=== PATIENT | male | born 1950 | race Caucasian/White ===

== ENCOUNTER 2017-03-22 10:15 | Emergency (ER) | payer OTHER ==
--- NOTE | 2017-03-22 11:43 | RAD ---
HISTORY: Left leg pain COMPARISONS: None relevant TECHNIQUE: Multiple transverse and longitudinal ultrasound images were obtained of the left lower extremity from the level of the common femoral vein inferiorly through to the infrapopliteal veins using grayscale, color Doppler, and spectral Doppler imaging with and without compression and with augmentation. Comparison images were obtained of the contralateral common femoral vein. FINDINGS: VEINS: There is thrombosis of the greater saphenous vein that extends past the common femoral junction into the common femoral vein.. SOFT TISSUES: Unremarkable. OTHER FINDINGS: None. IMPRESSION: GREATER SAPHENOUS VEIN THROMBOSIS WITH EXTENSION INTO THE COMMON FEMORAL VEIN
[2017-03-22 12:09] LABS: Hematocrit 45 % (42-52); Hemoglobin 15.2 g/dl (14.0-18.0); Mean Corpuscular HGB Conc 34 g/dl (31-36); Mean Corpuscular Hemoglobin 31 pg (27-31); Mean Corpuscular Volume 93 fL (80-94); Mean Platelet Volume 8 um3 (7.4-10.4); Red Blood Count 4.85 10^6/ul (4.0-5.4); Red Cell Distribution Width 13 % (10.5-15); White Blood Count 14.8 10^3/ul (3.5-10.8)
[2017-03-22 12:10] LABS: Add Diff/Slide Review? Slide Review Added; Comments Flag Yes
[2017-03-22 12:24] LABS: Albumin 3.8 g/dL (3.2-5.2); BUN/Creatinine Ratio 15.9 (8-20); C Reactive Protein 12.98 mg/L (< 5.00); Calcium 9.3 mg/dL (8.6-10.3); EGFR African American 112.1 (>60); EGFR Non-African American 87.2 (>60); Globulin 2.5 g/dL (2-4); Potassium 4.3 mmol/L (3.5-5.0); Total Bilirubin 0.5 mg/dL (0.2-1.0); Total Protein 6.3 g/dL (6.4-8.9)
[2017-03-22 12:45] LABS: Eosinophils % 20 % (0-6); Neutrophil % 56 % (38-83); Reactive Lymph % 1 % (0-6)
[2017-03-22 12:46] LABS: RBC Morphology Normal (Normal)
[2017-03-22] MEDS ORDERED: Rivaroxaban TAB(*) 15 MG PO ONE (13:24)
--- NOTE | 2017-03-22 13:29 | ED ---
Madison Garcia Gabriel, scribed for David Stephens MD on 03/22/17 at 1105 . Lower Extremity - HPI Summary HPI Summary: This patient is a 66 year old M presenting to [facility] accompanied by with a chief complaint of LLE pain since earlier today. The patient rates the pain 6/ 10 in severity. Patient reports pain, erythema, and a lump in the upper thigh on the left leg. Patient denies any pain or swelling to the right leg, CP, back pain, and ABD pain. The patient has [facility] but was not placed on blood thinners. The patient states he has not been any long trips recently where he was in an airplane or car for long periods of time and trauma. - History of Current Complaint Chief Complaint: EDExtremityLower Stated Complaint: LT LOWER EXTREMITY PAIN Time Seen by Provider: 03/22/17 10:56 Hx Obtained From: Patient Onset of Pain: Hours Onset/Duration: Still Present Severity Initially: Moderate Severity Currently: Moderate Pain Intensity: 6 Pain Scale Used: 0-10 Numeric Timing: Constant Location: Is Diffuse Associated Signs And Symptoms: Positive: Negative - denies any pain or swelling to the right leg, CP, back pain, and ABD pain, Swelling, Redness Able to Bear Weight: Yes - Allergies/Home Medications Allergies/Adverse Reactions: Allergies Allergy/AdvReac Type Severity Reaction Status Date / Time No Known Allergies Allergy Verified 10/23/14 15:10 PMH/Surg Hx/FS Hx/Imm Hx Previously Healthy: No Endocrine/Hematology History: Denies: Hx Diabetes Cardiovascular History: Reports: 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 Denies: Hx Atrial Fibrillation, Hx Hypertension Respiratory History: Reports: Hx Chronic Obstructive Pulmonary Disease (COPD) Infectious Disease History: No Infectious Disease History: Reports: Hx of Known/Suspected MRSA Denies: Traveled Outside the [place] in Last 30 Days - Family History Known Family History: Positive: Cardiac Disease - mother had a [facility] Negative: Hypertension, Diabetes, Renal Disease, Respiratory Disease, Seizure Disorder - Social History Lives: With Family Alcohol Use: Daily Alcohol Amount: 1-2day Substance Use Type: Reports: Marijuana Smoking Status (MU): Former Smoker Review of Systems Negative: Chest Pain Negative: Abdominal Pain Musculoskeletal: Negative - back pain. no symptoms in the RLE Positive: Other - LLE pain, erythema, and a lump in the upper thigh All Other Systems Reviewed And Are Negative: Yes Physical Exam - Summary Physical Exam Summary: General: well-appearing, no pain distress Skin: warm, color reflects adequate perfusion, dry Head: normal Eyes: EOMI, MARIA TERESA ENT: normal Neck: supple, nontender Respiratory: CTA, breath sounds present Cardiovascular: RRR Abdomen: soft, nontender Bowel: present Musculoskeletal: strength/ROM intact, erythema and swelling in the inner upper thigh and inner knee, there are good pulses and capillary refill Neurological: normal, sensory/motor intact, A&O x3 Psychological: affect/mood appropriate Triage Information Reviewed: Yes Vital Signs On Initial Exam: Initial Vitals BP 109/82 03/22/17 10:38 Vital Signs Reviewed: Yes - [place] Coma Scale Coma Scale Total: 15 Diagnostics - Vital Signs Vital Signs Temp Pulse Resp BP Pulse Ox 03/22/17 10:44 96.7 F 101 18 109/82 96 03/22/17 10:39 108 96 03/22/17 10:38 109/82 - Laboratory Lab Results: Lab Results 03/22/17 03/22/17 03/22/17 Range/Units 11:57 11:57 11:57 WBC 14.8 H (3.5-10.8) 10^3/ul RBC 4.85 (4.0-5.4) 10^6/ul Hgb 15.2 (14.0-18.0) g/dl Hct 45 (42-52) % MCV 93 (80-94) fL MCH 31 (27-31) pg MCHC 34 (31-36) g/dl RDW 13 (10.5-15) % Plt Count 305 (150-450) 10^3/ul MPV 8 (7.4-10.4) um3 Neut % (Auto) 50.4 (38-83) % Lymph % (Auto) 20.0 L (25-47) % [place] % (Auto) 7.2 (1-9) % Eos % (Auto) 21.9 H (0-6) % Baso % (Auto) 0.5 (0-2) % Absolute Neuts (auto) 7.5 (1.5-7.7) 10^3/ul Absolute Lymphs (auto) 3.0 (1.0-4.8) 10^3/ul Absolute Monos (auto) 1.1 H (0-0.8) 10^3/ul Absolute Eos (auto) 3.2 H (0-0.6) 10^3/ul Absolute Basos (auto) 0.1 (0-0.2) 10^3/ul Absolute Nucleated RBC 0.01 10^3/ul Neutrophils % 56 (38-83) % Lymphocytes % 16 L (25-47) % Reactive Lymphs % 1 (0-6) % Monocytes % 6 (0-13) % Eosinophils % 20 H (0-6) % Basophils % 1 (0-2) % Nucleated RBC % 0 Normal RBC Morphology Normal (Normal) INR (Anticoag Therapy) 1.02 (0.77-1.02) APTT 30.0 (26.0-36.3) seconds Sodium 132 L (133-145) mmol/L Potassium 4.3 (3.5-5.0) mmol/L Chloride 102 (101-111) mmol/L Carbon Dioxide 24 (22-32) mmol/L Anion Gap 6 (2-11) mmol/L BUN 14 (6-24) mg/dL Creatinine 0.88 (0.67-1.17) mg/dL Est GFR ( Amer) 112.1 (>60) Est GFR (Non-Af Amer) 87.2 (>60) BUN/Creatinine Ratio 15.9 (8-20) Glucose 114 H (70-100) mg/dL Calcium 9.3 (8.6-10.3) mg/dL Total Bilirubin 0.50 (0.2-1.0) mg/dL AST 18 (13-39) U/L ALT 23 (7-52) U/L Alkaline Phosphatase 50 (34-104) U/L C-Reactive Protein 12.98 H (< 5.00) mg/L Total Protein 6.3 L (6.4-8.9) g/dL Albumin 3.8 (3.2-5.2) g/dL Globulin 2.5 (2-4) g/dL Albumin/Globulin Ratio 1.5 (1-3) Result Diagrams: 03/22/17 11:57 03/22/17 11:57 Lab Statement: Any lab studies that have been ordered have been reviewed, and results considered in the medical decision making process. - Additional Comments Diagnostic Additional Comments: Venous Doppler reveals, per radiologist, GREATER SAPHENOUS VEIN THROMBOSIS WITH EXTENSION INTO THE COMMON FEMORAL VEIN ED physician has reviewed this radiology report and agrees. Lower Extremity Course/Dx - Course Course Of Treatment: NO CLINICAL EVIDENCE OF PE IN ED. RX XARELTO, F[facility]U [facility]. RETURN IF WORSE. - Diagnoses Provider Diagnoses: Left leg DVT Discharge - Discharge Plan Condition: Stable Disposition: HOME Prescriptions: Rivaroxaban TAB(*) [Xarelto 15 mg(*)] 15 mg PO BID #41 tab Patient Education Materials: Deep Venous Thrombosis (ED) Referrals: Minda Hurtado [Primary Care Provider] - Additional Instructions: FOLLOW UP WITH YOUR [facility] DOCTOR. CALL TODAY TO ARRANGE FOLLOW UP WITHIN 1-2 WEEKS. RETURN TO THE EMERGENCY DEPARTMENT FOR ANY WORSENING OF YOUR CONDITION; CHEST PAIN, SHORTNESS OF BREATH OR QUESTIONS OR CONCERNS. The documentation as recorded by the Madison butler Gabriel accurately reflects the service I personally performed and the decisions made by me, David Stephens MD.
[2017-03-22 14:12] VITALS: BP 113/99
== END 2017-03-22 14:15 | disposition home or self-care (01) ==
LOC: ED 10:15
DX: I82.812 Embolism and thrombosis of superficial veins of left lower extremity (principal); J44.9 Chronic obstructive pulmonary disease, unspecified; Z87.891 Personal history of nicotine dependence
CPT/HCPCS: 36415; 80053; 85025; 85610; 85730; 86140

== ENCOUNTER 2024-03-29 16:19 | Inpatient (IN) ==
[2024-03-29] MEDS: methylPREDNISolone SOD SUCC 125 mg 2 ML VIAL IV ONE (16:50)
[2024-03-29] MEDS: Albuterol/Ipratropium NEB.SOL (2.5/0.5 MG) 3 ML NEB.SOLN INH ONE (16:50)
[2024-03-29 17:08] LABS: ABS Basophils 0.1 10^3/uL (0.0-0.1); ABS Eosinophils 0.2 10^3/uL (0.0-0.5); ABS Lymphocytes 1.4 10^3/uL (1.0-4.8); ABS Monocytes 0.6 10^3/uL (0.0-1.1); ABS Neutrophils 4.9 10^3/uL (1.5-7.6); Eosinophil % 2.2 %; Hematocrit 41.1 % (38-53); Hemoglobin 14.3 g/dL (13.2-16.3); Mean Corpuscular Hemoglobin 31.9 pg (27-33); Mean Corpuscular Hgb Conc 34.7 g/dL (31-36); Mean Corpuscular Volume 91.9 fL (80-97); Mean Platelet Volume 7.3 fL (7.5-11.2); Platelet Count 426 10^3/uL (150-450); Red Blood Count 4.47 10^6/uL (4.06-5.63); Red Cell Distribution Width 13.1 % (12-17); White Blood Count 7.2 10^3/uL (3.6-10.2)
[2024-03-29 17:13] LABS: INR 0.97 (0.85-1.14)
[2024-03-29] MEDS: Azithromycin 500 mg/250 ml NS 500 MG/250 ML BAG IVPB ONE (17:21)
[2024-03-29] MEDS: cefTRIAXone 2 GM ADDV.VIAL 2 GM in NS 0.9% 100 ml BAG 100 ML IV ONE (17:24)
[2024-03-29 17:25] LABS: Albumin 4.4 g/dL (3.5-5.7); Albumin/Globulin Ratio 1.8 (1-3); Calcium 9.8 mg/dL (8.6-10.3); Creatinine, Serum 0.88 mg/dL (0.67-1.17); Globulin 2.4 g/dL (2-4); Potassium 4.3 mmol/L (3.5-5.0); Total Bilirubin 0.5 mg/dL (0.2-1.0); Total Protein 6.8 g/dL (6.4-8.9); eGFR CKD-EPI 91.9 (>60)
[2024-03-29 18:15] LABS: High Sensitivity Troponin 1 Hr 4 pg/mL (<20)
[2024-03-29] MEDS: cefTRIAXone 2 gm/50 mL D5W 2 GM/50 ML BAG IV ONE (18:26)
[2024-03-29] MEDS ORDERED: methylPREDNISolone SOD SUCC 125 mg 2 ML VIAL IV SCH (20:00)
[2024-03-29] MEDS: Enoxaparin 40 MG/0.4 ML SYR SUBCUT SCH (20:27)
[2024-03-29] MEDS: Albuterol 2.5mg/3 ml (0.083%) NEB.SOLN INH PRN (20:28)
[2024-03-30] MEDS: methylPREDNISolone SOD SUCC 125 mg 2 ML VIAL IV SCH (05:18)
[2024-03-30 07:29] LABS: Anion Gap 11 mmol/L (2-16); Blood Urea Nitrogen 14 mg/dL (6-24); CO2 Carbon Dioxide 23 mmol/L (22-32); Calcium 9.6 mg/dL (8.6-10.3); Chloride 101 mmol/L (101-111); Glucose 156 mg/dL (70-100); Sodium 135 mmol/L (135-145); eGFR CKD-EPI 98.5 (>60)
[2024-03-30] MEDS: Multivitamins/Minerals TAB PO SCH (08:49)
[2024-03-30] MEDS: Aspirin EC 81 mg TAB.EC (enteric coated) PO SCH (08:49)
[2024-03-30] MEDS: Mometasone/Formoter 200/5 MDI INH SCH (08:52)
[2024-03-30] MEDS: Iohexol 350 (CONTRAST) 500 ML MDV IV ONE (09:41)
[2024-03-30] MEDS: Sodium Chloride(INHALANT) 7% 4 ML NEB.SOLN INH SCH ×2 (11:33→19:00)
[2024-03-30] MEDS: methylPREDNISolone SOD SUCC 40 mg/ml 1 ml VIAL IV SCH (14:07)
[2024-03-30] MEDS: cefTRIAXone 1 gm/50 mL D5W 1 GM/50 ML BAG IV SCH (20:51)
[2024-03-30] MEDS: Azithromycin 500 mg/250 ml NS 500 MG/250 ML BAG IVPB SCH (21:59)
[2024-03-31 09:34] VITALS: BP 133/79
== END 2024-03-31 12:45 | disposition home or self-care (01) | DRG 190 ==
LOC: ED 16:19 → EDHOLD 16:19 → SUATTDRO 19:23 → MEDTELE 20:30
PROVIDERS: ADMIT Internal Medicine; ATTEND Student in an Organized Health Care Education/Training Program